=== PATIENT | male | born 1950 | race Two or more races ===

== ENCOUNTER 2018-05-23 14:02 | Emergency (ER) | payer OTHER ==
[~2018-05-23] VITALS: Ht 175.3 cm; Wt 87.1 kg
[2018-05-23] MEDS ORDERED: NORVASC10 MG (14:33)
== END 2018-05-23 19:53 | disposition home or self-care (01) ==
LOC: ER 14:02
DX: N20.1 Calculus of ureter (principal); R10.11 Right upper quadrant pain

== ENCOUNTER 2019-01-23 08:41 | Emergency (ER) | payer OTHER ==
[~2019-01-23] VITALS: Ht 175.3 cm; Wt 87.1 kg
[~2019-01-23 08:41] MED LIST: NORVASC10 MG
== END 2019-01-23 09:59 | disposition home or self-care (01) ==
LOC: ER 08:41
DX: B02.8 Zoster with other complications (principal)